=== PATIENT | female | born 1950 | race Caucasian/White ===

== ENCOUNTER 2020-02-19 06:03 | Inpatient (IN) ==
[2020-02-14 12:16] LABS: Appearance,Urine CLEAR (Clear); Bilirubin,Urine Negative (Negative); Color,Urine YELLOW; Culture Indicated,Urine No; Glucose,Urine (UA) Negative (Negative); Ketones,Urine Negative (Negative); Leukocyte Esterase,Urine Negative /ug (Negative); Nitrate,Urine Negative (Negative); Protein,Urine Negative (Negative); Specific Gravity,Urine 1.026 (1.000-1.035); Urine Blood Negative (Negative)
[2020-02-14 12:32] LABS: Blood Urea Nitrogen 15 mg/dL (8-23); Calcium 8.9 mg/dL (8.6-10.4); Carbon Dioxide 28 mmol/L (22-30); Chloride 101 mmol/L (96-108); Glomerular Filtration Rate 65; Glucose 93 mg/dL (70-105)
[2020-02-14 12:37] LABS: Basophils # (Auto) 0.08 K/mcL (0.00-0.20); Basophils % (Auto) 0.8 % (0.0-2.0); Eosinophils # (Auto) 0.14 K/mcL (0.00-0.70); Eosinophils % (Auto) 1.4 % (0.0-7.0); Hematocrit 42.6 % (36.0-48.0); Hemoglobin 14.2 g/dL (12.0-15.0); Lymphocytes # (Auto) 2.59 K/mcL (1.50-4.80); Mean Cell Volume 91.6 fL (80.0-100.0); Mean Corpuscular HGB Conc 33.3 g/dL (31.0-36.0); Mean Platelet Volume 9.4 fL (7.4-10.4); Monocytes # (Auto) 0.97 K/mcL (0.10-0.90); Monocytes % (Auto) 9.4 % (1.0-12.0); Neutrophils % (Auto) 63.4 % (38.0-78.0); Platelet Count 368 K/mcL (140-440); RBC 4.65 M/mcL (4.00-5.20); Red Cell Distribution Width 13.9 % (11.5-14.5); WBC 10.4 K/mcL (4.5-11.0)
[2020-02-14 12:50] LABS: Partial Thromboplastin Time 29.5 sec (20.0-37.0)
[2020-02-14 12:51] LABS: INR 0.9 (0.9-1.1); Prothrombin Time 12.5 sec (11.9-14.5)
[~2020-02-19 06:03] MED LIST: 0.9 % SODIUM CHLORIDE 9 ML, KETOROLAC 30 MG, ROPIVACAINE HCL/PF 49.5 ML, EPINEPHrine 0.... IJ SCH; ACETAMINOPHEN 500 MG TABLET PO SCH; IPRATROPIUM/ALBUTEROL 3 ML AMPUL.NEB NEB PRN; PREGABALIN 75 MG CAPSULE PO SCH; SCOPOLAMINE 1 PATCH PATCH TOPICAL PRN; ceFAZolin 2 GM in DEXTROSE 5% IN WATER 50 ML IV SCH; ceFAZolin 3 GM in DEXTROSE 5% IN WATER 50 ML IV SCH; oxyCODONE 10 MG TAB.ER.12H PO SCH
[2020-02-19] MEDS ORDERED: TRANEXAMIC ACID 1,000 MG/10 ML VIAL IV ONE (09:20)
[2020-02-19] MEDS ORDERED: PHENYLEPHRINE 10 MG/ML VIAL ONE (09:20)
[2020-02-19] MEDS ORDERED: diphenhydrAMINE 50 MG/ML VIAL ONE (09:20)
[2020-02-19] MEDS ORDERED: PROPOFOL 200 MG/20 ML VIAL IV ONE (09:20)
[2020-02-19] MEDS ORDERED: ONDANSETRON 4 MG/2 ML VIAL ONE (09:20)
[2020-02-19] MEDS ORDERED: KETAMINE 100 MG/ML ML ONE (09:20)
[2020-02-19] MEDS ORDERED: LIDOCAINE HCL/PF 100 MG/5 ML SYRINGE IV ONE (09:20)
[2020-02-19] MEDS ORDERED: DEXAMETHASONE 10 MG/ML VIAL ONE (09:20)
[2020-02-19] MEDS ORDERED: ROPIVACAINE HCL/PF 20 ML VIAL IJ ONE (09:20)
[2020-02-19] MEDS ORDERED: GLYCOPYRROLATE 0.2 MG/ML VIAL IV ONE (09:20)
[2020-02-19] MEDS ORDERED: ePHEDrine 50 MG/ML AMPUL IV ONE (09:20)
[2020-02-19] MEDS ORDERED: BENZOCAINE/MENTHOL 1 LOZENGE PO PRN ×2 (09:54→10:23)
[2020-02-19] MEDS ORDERED: FLUMAZENIL 0.1 MG/ML ML IV PRN (09:54)
[2020-02-19] MEDS ORDERED: MEPERIDINE 25 MG/ML SYRINGE IV PRN (09:54)
[2020-02-19] MEDS ORDERED: LABETALOL 5 MG/ML ML IV PRN (09:54)
[2020-02-19] MEDS ORDERED: METHOCARBAMOL 1,000 MG/10 ML VIAL IV PRN (09:54)
[2020-02-19] MEDS ORDERED: METOPROLOL TARTRATE 5 MG/5 ML VIAL IV PRN (09:54)
[2020-02-19] MEDS ORDERED: ONDANSETRON 4 MG/2 ML VIAL IV PRN ×2 (09:54→10:23)
[2020-02-19] MEDS ORDERED: IPRATROPIUM/ALBUTEROL 3 ML AMPUL.NEB NEB PRN (09:54)
[2020-02-19] MEDS ORDERED: NALOXONE HCL 0.4 MG/ML VIAL IV PRN (09:54)
[2020-02-19] MEDS ORDERED: LACTATED RINGERS 250 ML IV PRN (09:54)
[2020-02-19] MEDS ORDERED: LACTATED RINGERS 1,000 ML IV SCH (10:00)
[2020-02-19] MEDS ORDERED: GENTAMICIN SULFATE 800 MG/20 ML VIAL IR ONE (10:09)
[2020-02-19] MEDS ORDERED: FLEETS ADULT ENEMA PR PRN (10:23)
[2020-02-19] MEDS ORDERED: POLYETHYLENE GLYCOL 3350 17 GM PACKET PO PRN (10:23)
[2020-02-19] MEDS ORDERED: HYDROmorphone 1 MG/ML SYRINGE IV PRN (10:23)
[2020-02-19] MEDS ORDERED: MAGNESIUM HYDROXIDE 30 ML ORAL.SUSP PO PRN (10:23)
[2020-02-19] MEDS ORDERED: ACETAMINOPHEN 325 MG TABLET PO PRN (10:23)
[2020-02-19] MEDS ORDERED: TRANEXAMIC ACID 1,000 MG/10 ML VIAL IV SCH (10:23)
[2020-02-19] MEDS ORDERED: HYDROcodone/APAP 10/325MG TABLET PO PRN (10:23)
[2020-02-19] MEDS ORDERED: BISACODYL 10 MG SUPP.RECT PR PRN (10:23)
--- NOTE | 2020-02-19 10:23 | Brief Operative Note ---
Brief Operative Note Date of procedure: 02/19/20 Pre-op diagnosis: right Post-op diagnosis: same Procedure: Right knee revision one component Grafts/Implants: Yes Anesthesia: GETA Complications: none Surgeon: Korey Carcamo Back Hoe Operator: Mayito Alfonso Estimated blood loss (cc): 20 Tourniquet Time (Minutes): 33 Specimens Removed/Pathology: none sent Condition: stable Disposition: PACU
[2020-02-19] MEDS ORDERED: CARISOPRODOL 350 MG TABLET PO PRN (10:26)
--- NOTE | 2020-02-19 10:34 | Discharge Plan ---
Discharge Instructions - TKA Patient Instructions Total Knee Protocol: For Total Knee: Start ROM KELSEA with stationary bike or rocking chair. Work on gaining full extension of knee. Posterior dislocation precautions provided. Hip abductor strengthening and gait training instructions provided. Apply Cryocuff as instructed. Discharge Plan Patient/Caregiver Discharge Instructions Activity: ambulate only with your walker and as per physical therapy Diet: Regular Diet Prescriptions: New hydrocodone-acetaminophen 10-325 mg Tablet 1 - 2 tab PO Q4HP PRN (Reason: Per Pain Protocol) Qty: 75 RF: 0 aspirin 325 mg Tablet,Delayed Release (Dr/Ec) 81 mg PO BID Qty: 60 RF: 0 docusate sodium 100 mg Capsule 100 mg PO BID Qty: 60 RF: 0 No Action multivitamin Tablet 1 tab PO HS RF: 0 carisoprodol 350 mg Tablet 350 mg PO DAILYP PRN (Reason: Spasms) RF: 0 atorvastatin 80 mg Tablet 80 mg PO QHS RF: 0 clopidogrel [Plavix] 75 mg Tablet 75 mg PO HS RF: 0 tramadol 50 mg Tablet 100 mg PO HSP PRN (Reason: Pain) RF: 0 estradiol 1 mg Tablet 2 mg PO HS RF: 0 ascorbic acid (vitamin C) [Vitamin C] 500 mg Tablet 1,000 mg PO QDAY RF: 0 trazodone 100 mg Tablet 100 mg PO QHS RF: 0 pantoprazole [Protonix] 40 mg Tablet,Delayed Release (Dr/Ec) 40 mg PO BIDAC RF: 0 irbesartan 150 mg Tablet 150 mg PO HS RF: 0 coenzyme Q10 [Co Q-10] 100 mg Capsule 100 mg PO HS RF: 0 cholecalciferol (vitamin D3) [Vitamin D3] 25 mcg (1,000 unit) Tablet 50 mcg PO QDAY RF: 0 omega [id number] oil [Fish Oil] 1,000 mg (120 mg-180 mg) Capsule 2 cap PO QDAY RF: 0 Probiotic 5 billion cell Capsule, Sprinkle 1 cap PO HS RF: 0 Caltrate 600 plus D 600 mg (1,500 mg)-800 unit Tablet,Chewable 1 tab PO QAM RF: 0 magnesium oxide 400 mg magnesium Tablet 400 mg PO BID RF: 0 Other Ambulatory Orders: CPM Discharge Order (ONCE) Location: None Selected Ordered By: Mayito Alfonso Physical Therapy DC - TKA (Routine) Location: None Selected Ordered By: Mayito Alfonso Toilet Riser Discharge Order (ONCE) Location: None Selected Ordered By: Mayito Alfonso Walker (ONCE) Location: None Selected Ordered By: Mayito Alfonso Follow Up Plan Follow up with: Mayito Alfonso PA-C [Physician Energy Efficiency Specialist] - Patient Disposition: Home, Self-Care Prognosis: Good Rehab Potential: Good I certify that the patient requires SNF services: No Overall status at discharge: patient is progressing back to baseline Discharge Orders: Discharge Order (Routine); Ordered 02/20/20 Ordered By: Mayito Alfonso
--- NOTE | 2020-02-19 11:10 | Operative Note ---
DATE OF OPERATION: 02/19/2020 PREOPERATIVE DIAGNOSIS: Right knee instability and loosened ligaments. POSTOPERATIVE DIAGNOSIS: Right knee instability and loosened ligaments. PROCEDURE: Right total knee arthroplasty revision of one component, the poly liner from a size 11 mm to a size 15 mm. SURGEON: Korey Carcamo M.D. PASSENGER TIRE INSPECTOR: Mayito Alfonso PA-C. The PA's assistance was required for the safe and efficient completion of the entire case. This provider's expertise and technical skill were required throughout the case because of the complexity of the revision, to both hold and retract during the case to get exposure, as well as to assist with preoperative coordination, intraoperative retraction, wound closure, dressing and splint application, as well as postoperative documentation and care coordination. COMPLICATIONS: None. TOURNIQUET TIME: 33 minutes at 250 pounds of pressure. ESTIMATED BLOOD LOSS: 20 mL. DESCRIPTION OF PROCEDURE: The patient was brought to the operating room, put to sleep with general LMA anesthesia. Once asleep, the patient had the right leg sterilely prepped and draped in the usual sterile fashion. A timeout was performed confirming the operative site by initials, consent form, and x-rays. Once done and confirming preoperative antibiotics and tranexamic acid had been given, we then made a midline incision through a prior scar. Midvastus approach was performed. We were able to expose the joint, showing very lax ligaments. We identified that the poly was a 3-4 mm with an 11 mm thick poly. We went up to a size 13 mm and then to a 15 mm. The 15 mm was the most appropriate thickness, as it stabilized and gave full range of motion. After trialing this, we then removed the bony spurs posteriorly, as well as laterally. A small synovectomy was performed. We irrigated thoroughly, and then we placed the final implant which was a 3-4 mm XLP poly inserted into the implant, which locked after some effort. The patient tolerated this well. We then took the knee through range of motion and irrigated once more. We closed the midvastus approach with #1 Stratafix, as well as Stratafix and Monocryl and adhesive closure. The patient tolerated this well without complication. Tourniquet time was 33 minutes. Blood loss was 20 mL. Sterile bandage was applied. SONIA:cruz Job ID: [id number] Doc ID: [id number] Korey Carcamo MD
[2020-02-19] MEDS: 0.45 % SODIUM CHLORIDE 1,000 ML IV SCH ×2 (11:33→21:41)
[2020-02-19] MEDS: 0.9 % SODIUM CHLORIDE 10 ML SYRINGE IV SCH ×2 (12:19→21:49)
--- NOTE | 2020-02-19 12:44 | XRay Report ---
CLINICAL INFORMATION: Post-Op Total Knee COMPARISON: Postoperative films 2011 FINDINGS: Total knee prostheses remains anatomically aligned. An 11 mm focus of heterotopic ossification is seen adjacent to the superior pole of the patella which is new from the remote x-ray. There is moderate adjacent soft tissue swelling. 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 Nature of the patient's surgery is unknown. It does not appear to the knee prostheses was revised Interpreted and Authenticated by: Juan Carlos Molina 02/19/20
[2020-02-19] MEDS: KETOROLAC 15 MG/ML VIAL IV SCH ×2 (13:23→17:57)
[2020-02-19] MEDS: PANTOPRAZOLE 40 MG TABLET PO SCH (16:54)
[2020-02-19] MEDS: ceFAZolin 1 GM VIAL IV SCH (16:55)
[2020-02-19] MEDS ORDERED: ESTRADIOL 1 MG TABLET PO SCH (21:00)
[2020-02-19] MEDS ORDERED: COENZYME Q10 100 MG PO SCH (21:00)
[2020-02-19] MEDS ORDERED: LACTOBACILLUS 1 CAPSULE PO SCH (21:00)
[2020-02-19] MEDS ORDERED: LOSARTAN 50 MG TABLET PO SCH (21:00)
[2020-02-19] MEDS ORDERED: SENNOSIDES 1 TABLET PO SCH (21:00)
[2020-02-19] MEDS ORDERED: ATORVASTATIN 40 MG TABLET PO SCH (21:00)
[2020-02-19] MEDS ORDERED: TEMAZEPAM 15 MG CAPSULE PO PRN (21:00)
[2020-02-19] MEDS ORDERED: MULTIVIT,THER IRON,CA,FA & MIN 1 TABLET PO SCH (21:00)
[2020-02-19] MEDS: DOCUSATE SODIUM 100 MG CAPSULE PO SCH (21:41)
[2020-02-19] MEDS: MAGNESIUM OXIDE 400 MG TABLET PO SCH (21:42)
[2020-02-19] MEDS: ASPIRIN 81 MG TAB.CHEW PO SCH (21:42)
[2020-02-20] MEDS: ceFAZolin 1 GM VIAL IV SCH (01:31)
[2020-02-20] MEDS: KETOROLAC 15 MG/ML VIAL IV SCH ×3 (01:32→11:55)
[2020-02-20] MEDS: 0.9 % SODIUM CHLORIDE 10 ML SYRINGE IV SCH (05:39)
[2020-02-20] MEDS: 0.45 % SODIUM CHLORIDE 1,000 ML IV SCH (06:12)
--- NOTE | 2020-02-20 07:44 | Orthopedic Progress Note ---
SUBJECTIVE Subjective Patient information: Note initiated : 02/20/20 at 7:43 am Service Date, if different from initiated Date: [] Patient: Mary Anne Cabrera 70 y/o F admitted on 02/19/20 for Right Total Knee Arthroplasty Revision - Poly. Chief Complaint: [Pt is stable this morning on post operative day without any significant concerns or complaints. Patients vital signs have remained stable. Patients dressing is dry and is grossly intact from a neurovascular and motor standpoint. Patients 10 point ROS is otherwise negative. ] Constitutional Vitals: Vital Signs Temp Pulse Resp BP Pulse Ox 98.5 F 81 16 128/60 96 02/20/20 03:23 02/20/20 03:23 02/20/20 03:23 02/20/20 03:23 02/20/20 03:23 Period Temp Pulse Resp BP Sys/Lyon Pulse Ox Last 24 Hr 96.8 F-98.9 F 72-102 12-22 117-150/47-70 89-100 Intake and Output 02/19/20 02/20/20 02/20/20 21:59 05:59 13:59 Intake Total 2420 1100 Output Total 1400 Balance 1020 1100 Weight 213 lb 4.8 oz Intake & Output: Intake & Output 02/19/20 02/20/20 02/20/20 21:59 05:59 13:59 Intake Total 2420 1100 Output Total 1400 Balance 1020 1100 Weight 213 lb 4.8 oz Intake: IV 1000 Sodium Chloride 0.45% 1,000 ml 1000 @ 100 mls/hr IV .Q10H [facility] Rx#: [id number] Oral 1420 1100 Output: Void Amount 1400 Other: Meal Dinner Percent of Meal Consumed 100% Feeding Ability Independent Urine Appearance Clear Urine Color Bright Yellow Urine Odor Normal Extremities Exam Extremities exam: Present normal inspection, Foot pink and warm and neurovascular intact OBJ DATA Labs CBC & Chem 7: 02/20/20 05:42 02/14/20 10:21 Labs: Abnormal Lab Results 02/20/20 05:42 Hct 34.1 L Meds: Medications Acetaminophen (Tylenol) 650 mg PO Q6HP PRN; Protocol PRN Reason: Per Pain Protocol/Fever > 101 Hydrocodone Bitart/Acetaminophen ([place] 10/325mg) 1 - 2 tab PO Q4HP PRN; Protocol PRN Reason: Per Pain Protocol Aspirin (Aspirin) 81 mg PO BID [facility] Last Admin: 02/19/20 21:42 Dose: 81 mg Documented by: Atorvastatin Calcium (Lipitor) 80 mg PO [facility] Last Admin: 02/19/20 21:41 Dose: 80 mg Documented by: Bisacodyl (Dulcolax) 10 mg MS Q2-3DAYS PRN PRN Reason: Constipation Carisoprodol (Soma) 350 mg PO DAILYP PRN PRN Reason: Spasms Docusate Sodium (Colace) 100 mg PO BID [facility] Last Admin: 02/19/20 21:41 Dose: 100 mg Documented by: Estradiol (Estrace) 2 mg PO [facility] Last Admin: 02/19/20 21:48 Dose: Not Given Documented by: Fish Oil (Fish Oil) 2,000 mg PO QDAY [facility] Hydromorphone HCl (Dilaudid) 0 mg IV Q2HP PRN; Protocol PRN Reason: Per Pain Protocol Sodium Chloride (Sodium Chloride 0.45%) 1,000 mls @ 100 mls/hr IV .Q10H [facility] Last Admin: 02/20/20 06:12 Dose: Not Given Documented by: Iron Carb/Multivit/Guest Relations Manager/Folic Acid (Multivitamin W/Minerals) 1 tab PO [facility] Last Admin: 02/19/20 21:41 Dose: 1 tab Documented by: Ketorolac Tromethamine (Toradol) 15 mg IV Q6 [facility] Stop: 02/21/20 06:01 Last Admin: 02/20/20 05:39 Dose: 15 mg Documented by: Lactobacillus Rhamnosus (Culturelle) 1 cap PO [facility] Last Admin: 02/19/20 21:42 Dose: 1 cap Documented by: Losartan Potassium (Cozaar) 50 mg PO [facility] Last Admin: 02/19/20 21:42 Dose: 50 mg Documented by: Magnesium Hydroxide (Milk Of Magnesia) 30 ml PO BIDP PRN PRN Reason: Constipation Magnesium Oxide (Magnesium Oxide) 400 mg PO BID [facility] Last Admin: 02/19/20 21:42 Dose: 400 mg Documented by: Ondansetron HCl (Zofran) 4 mg IV Q4HP PRN PRN Reason: Nausea And Vomiting Pantoprazole Sodium (Protonix) 40 mg PO BIDAC [facility] Last Admin: 02/19/20 16:54 Dose: 40 mg Documented by: Polyethylene Glycol (Miralax) 17 gm PO DAILYP PRN PRN Reason: Constipation Senna (Senokot) 2 tab PO HS [facility] Last Admin: 02/19/20 21:42 Dose: 2 tab Documented by: Sodium Biphosphate/Sodium Phosphate (Fleets Adult) 1 dose MS Q3-4DAYS PRN PRN Reason: Constipation Sodium Chloride (Saline Flush) 10 ml IV Q8 [facility] Last Admin: 02/20/20 05:39 Dose: 10 ml Documented by: Temazepam (Restoril) 15 mg PO HSP PRN PRN Reason: Insomnia Last Admin: 02/19/20 21:56 Dose: 15 mg Documented by: Throat Lozenges (Cepacol) 1 lozenge PO PRN PRN PRN Reason: Sore Throat Vitamin D (Vitamin D3) 1,000 unit PO QDAY [facility] A/P Narrative A/P Narrative: The patient has been educated regarding dressing care, Physical Therapy recommendations, home exercises, restrictions, and follow up appointments. The patient has had all necessary DME prescribed. The patient has remained relatively stable during their hospital course. Pt has progressed quicker than expected and meets the criteria for early discharge per Physicial Therapy and our evaluation. Time Spent With Patient Time: Total time spent is greater than 50% in coordination of care (as documented) at patient's floor/unit and/or counseling patient:
[2020-02-20] MEDS: PANTOPRAZOLE 40 MG TABLET PO SCH (08:04)
[2020-02-20] MEDS: DOCUSATE SODIUM 100 MG CAPSULE PO SCH (08:04)
[2020-02-20] MEDS: ASPIRIN 81 MG TAB.CHEW PO SCH (08:04)
[2020-02-20] MEDS: MAGNESIUM OXIDE 400 MG TABLET PO SCH (08:04)
[2020-02-20] MEDS ORDERED: FISH OIL 1,000 MG CAPSULE PO SCH (09:00)
[2020-02-20] MEDS ORDERED: VITAMIN D3 1,000 UNIT TABLET PO SCH (09:00)
== END 2020-02-20 12:26 | disposition home or self-care (01) | DRG 489 ==
LOC: MEDSUR 06:03
PROVIDERS: ADMIT Orthopaedic Surgery; ATTEND Orthopaedic Surgery